=== PATIENT | male | born 1945 | race Caucasian/White ===

== ENCOUNTER 2016-10-02 10:40 | Emergency (ER) | payer MEDICARE, OTHER | END 2016-10-02 12:24 | disposition home or self-care (01) | LOC: ER 10:40 | DX: M79.652 Pain in left thigh (principal); R20.0 Anesthesia of skin; M79.605 Pain in left leg; Z79.82 Long term (current) use of aspirin; Z79.899 Other long term (current) drug therapy | CPT/HCPCS: 96372 ==

== ENCOUNTER 2016-10-09 12:36 | Emergency (ER) | payer MEDICARE, OTHER | END 2016-10-09 16:57 | disposition home or self-care (01) | LOC: ER 12:36 | DX: R55 Syncope and collapse (principal); M54.9 Dorsalgia, unspecified; R53.1 Weakness; I12.9 Hypertensive chronic kidney disease with stage 1 through stage 4 chronic kidney disease, or unspecified chronic kidney disease; N18.3 Chronic kidney disease, stage 3 (moderate); D64.9 Anemia, unspecified; Z99.81 Dependence on supplemental oxygen; Z87.891 Personal history of nicotine dependence; Z79.82 Long term (current) use of aspirin; Z79.899 Other long term (current) drug therapy | CPT/HCPCS: 36415; 96374; 96376 ==